=== PATIENT | female | born 1945 | race Caucasian/White ===

== ENCOUNTER 2016-12-01 22:35 | Emergency (ER) | payer MEDICARE ==
[~2016-12-01] VITALS: Ht 165.1 cm; Wt 70.3 kg
[2016-12-02] MEDS ORDERED: COZAAR50 MG PO (05:41)
[2016-12-02] MEDS ORDERED: HYDROCHLOROTH12.5 MG PO (05:41)
[2016-12-02] MEDS ORDERED: BIOSUPP473 ML PO (05:42)
== END 2016-12-02 00:35 | disposition short-term general hospital (02) ==
LOC: ER 22:35
DX: R53.1 Weakness (principal)
CPT/HCPCS: J2405

== ENCOUNTER 2016-12-02 07:12 | Day surgery (SDC) | payer MEDICARE ==
[~2016-12-02] VITALS: Ht 167.6 cm; Wt 72.1 kg
[~2016-12-02 07:12] MED LIST: BIOSUPP473 ML PO; COZAAR50 MG PO; HYDROCHLOROTH12.5 MG PO
== END 2016-12-02 09:20 | disposition short-term general hospital (02) ==
LOC: SURGOP 07:12
PROC: 0DBP8ZZ Excision of Rectum, Via Natural or Artificial Opening Endoscopic (ICD-10-PCS; principal; 2016-12-02)
DX: Z12.11 Encounter for screening for malignant neoplasm of colon (principal); K62.1 Rectal polyp; K57.30 Diverticulosis of large intestine without perforation or abscess without bleeding; Z80.0 Family history of malignant neoplasm of digestive organs; Z79.899 Other long term (current) drug therapy; I10 Essential (primary) hypertension; G47.30 Sleep apnea, unspecified
CPT/HCPCS: J2405